=== PATIENT | male | born 1930 | race Caucasian/White ===

== ENCOUNTER 2016-08-22 06:42 | Inpatient (IN) | payer MEDICARE, OTHER ==
[~2016-08-22] VITALS: Ht 172.7 cm; Wt 101.8 kg
[~2016-08-22 06:42] MED LIST: ASA CHILDREN'S81 MG PO; B-12500 MCG PO; CALCIUM CARBON650 MG PO; CORDARONE DPS200 MG PO; COUMADIN2.5 MG PO; COUMADIN5 MG PO; FLOMAX DPS0.4 MG PO; FOLVITE-DPS1 MG PO; GARLIC OIL3 MG PO; LIPITOR DPS10 MG PO; LIPITOR20 MG PO; MAALOX DPS30 ML PO; MELATONIN3 MG PO; NASAREL NASAL S25 ML NS; NITROSTAT0.4 MG SL; NORVASC2.5 MG PO; OMEGA-3 DPS1000 MG PO; PEPCID DPS20 MG PO; PROAIR RESPICL90 MCG IH; SENOKOT S1 TAB PO; SURFAK DPS240 MG PO; TOTALDAY MULTI1 EACH PO; TRIXAICIN60 GM TP; TYLENOL DPS325 MG PO; VITAMIN B-12500 MCG PO; VITAMIN D-32000 UNI1 PO; ZOFRAN4 MG PO; ZYLOPRIM-DPS300 MG PO
--- NOTE | 2016-08-22 12:40 | ER ---
ADMIT: 08/22/2016 RM/LOC: ER [facility] MR#: [id number] [address] [facility] [address] [place], [place] [address] CARLOS SEGURA [address] [place] [address] Emergency Room Report SEX: M AGE: 86 : 1930 DATE: 08/22/2016 ADDENDUM: This is an 86-year-old white male coming in with acute onset of headache through the night that woke him up. He finally could not take it anymore, came in. This gentleman also has had a history of a subdural in 2016 from a fall. He has atrial fibrillation. He is also at this time on Eliquis I am thinking for atrial fibrillation. At this time, he is alert, he is oriented. He has no deficits at this time, just this headache. Dr. Rubio had saw him initially. PT/INR is negative. Chemistry is essentially negative. Borderline creatinine is 1.8. His CBC is otherwise negative. EKG appears to have a right bundle branch block. He has a history of atrial fibrillation, but I do not think that he has been in AFib recently. I spoke with Dr. Ayala after we did a CT with and without. He is going to admit him as an observation since we cannot tap him. Gave him a little Dilaudid for pain which has helped. CONDITION ON DISCHARGE: Fair. Benjamín Apple MD/ cyndy JOB #: [id number] CC: Kedar Rubio MD, Attending Physician Ricardo Gomes MD, Family Physician
--- NOTE | 2016-08-22 16:23 | HP ---
ADMIT: 08/22/2016 RM/LOC: 402 [facility] MR#: [id number] [address] [address] COLTON CARLOS Nacho [address] [place], [place] [address] History and Physical SEX: M AGE: 86 : 1930 DATE OF SERVICE: CHIEF COMPLAINT: Sudden onset intractable headache and intractable nausea and vomiting. HISTORY OF PRESENT ILLNESS: This is obtained from the medical record as the patient is a bit delirious secondary to antiemetic and pain medications. This is an 86-year-old male, who see my partner, Dr. Ricardo Gomes. He is evaluated in the ER by Dr. Benjamín Apple secondary to a sudden onset of intractable headache. He did undergo an evaluation with Dr. Apple in the ER, he was unable to find an acute etiology of his symptoms, he would like to do a lumbar puncture on him; however, he is unable to do so secondary to him being on anticoagulants for paroxysmal atrial fibrillation. At that time, without an etiology of his headache and nausea, he did request admission to observation. The patient did have acute control of his symptoms upon initial admission. However, on arrival to the floor, the patient was complaining of severe headache and an intractable nausea. We gave some IV steroids to help with his nausea which did not improve, but ultimately responded very nicely to IV Phenergan. Upon my arrival to the bedside, the patient is actually delirious. He awakes to verbal stimuli. He tells me what his name is, shakes my hand. However, he is unable to give me any in-depth details. He has no pain currently. He has no pain in his neck, and he states his headache is actually better. He does not have any photophobia, and he moves all his extremities. However, he is quite delirious. PAST MEDICAL HISTORY: 1. Osteoarthritis. 2. Hyperlipidemia. 3. Coronary artery disease. 4. Paroxysmal atrial fibrillation. 5. History of subdural hematoma with paulina hole. 6. Hypertension. 7. Obstructive sleep apnea, on CPAP. 8. Chronic anticoagulation for atrial fibrillation. 9. Carotid stenosis, status post right carotid endarterectomy. 10.Prior CVA. 11.Lumbar stenosis. 12.BPH. 13.Environmental allergies. 14.Tobacco abuse. ALLERGIES: HE IS ALLERGIC TO ZOCOR. MEDICATIONS: 1. Allopurinol. 2. Atorvastatin. 3. Apixaban. 4. Calcium carbonate. ADMIT: 08/22/2016 RM/LOC: 402 [facility] MR#: [id number] [address] [address] CARLOS STARKEY [address] [place] [address] History and Physical SEX: M AGE: 86 : 1930 5. Cyanocobalamin. 6. Vitamin D. 7. Docusate. 8. Fish oil. 9. Folic acid. 10.Melatonin. 11.Multivitamins. 12.Polyethylene glycol. 13.Ranitidine. 14.Tamsulosin. 15.Amiodarone. 16.Cod liver oil. 17.Garlic oil. FAMILY HISTORY: Dementia in sisters. Brother with diabetes. Heart disease in mother and father. SOCIAL HISTORY: He is . He does not drink. He is retired. He used to smoke. Lives at home with his . REVIEW OF SYSTEMS: Not completely obtainable. However, he denies any headache right now. No neck pain. No shortness of breath. No chest pain. PHYSICAL EXAMINATION: VITAL SIGNS: Blood pressure is 153/73, pulse is 80, respiratory rate is 16, temperature is 96.5 degrees, he is 96% on O2. GENERAL: He is sedated from the medications, however, he does awake to verbal and tactile stimulus. He is able to tell me who he is, however, he does talk very quietly. HEENT: Normocephalic, atraumatic. Extraocular muscles are intact. Pupils are equally round and responsive to light. He has no photophobia. No nasal discharge. I felt around on his head, he has no trauma. No crepitus. No masses or swellings. I felt his neck as well, no symptoms there. He put his chin on his chest. He has no nuchal rigidity right now. HEART: Regular. LUNGS: Clear to auscultation with a little bit of distance. He does cough when you wake him up and does have a history of sleep apnea. ABDOMEN: Soft, nontender, and nondistended. EXTREMITIES: No clubbing, cyanosis, or edema. NEURO: He moves all of his extremities. He does follow some complex commands. His cranial nerves are grossly intact. PSYCHIATRIC: He is very delirious from medications to control his symptoms. LABORATORY AND X-RAY DATA: CT of head without contrast, no acute findings. CTA of his head with the fluid collection and the previous paulina hole, otherwise nothing acute. White blood cells are 6.2, hemoglobin is 12.5, platelets are 144. Sodium is 142, potassium is 4.3, chloride is 110, bicarb is 25, BUN is 33, creatinine is 1.8, blood glucose is 92, calcium is 8.2, total bilirubin is 0.5, total protein 7.3, albumin is 3, alkaline phosphatase is 86, ADMIT: 08/22/2016 RM/LOC: 402 [facility] MR#: [id number] [address] [place] [id number] CARLOS STARKEY [facility] [place] [address] History and Physical SEX: M AGE: 86 : 1930 AST is 14, ALT is 18. Magnesium is 2.3. INR is less than 1. CTA of his head as stated above. Sedimentation rate is 53. Procalcitonin and CRP are pending. EKG, no acute ST segments. ASSESSMENT AND PLAN: 1. Intractable headache, worse headache of his life. 2. Intractable nausea. 3. Delirium. 4. Paroxysmal atrial fibrillation. 5. Chronic kidney disease. 6. Prior subdural hematoma. 7. Benign prostatic hypertrophy. 8. Hyperlipidemia. 9. Hypertension. Mr. Starkey is an 86-year-old man with the above medical history. He had a rather sudden onset of the worst headache of his life on last night that woke him from his sleep. He did undergo an extensive evaluation in the ER with extensive imaging, unable to determine any etiology. He has no nuchal rigidity. He has no photophobia. He has no localizing symptoms. No focal neurological deficits right now. He is delirious from the medications. The patient did have this rather sudden onset. He is not currently febrile, however, the patient does not have a clear etiology of his intractable nausea and his headache. What I will do is I am going to go ahead and start him on some empiric DINING ROOM TABLES SET UP ATTENDANT coverage with ampicillin, ceftriaxone, and vancomycin. I am going to hold non-essential medications at this time. I will maintain him on the Dilaudid and Phenergan as needed for his headache and nausea and vomiting. I am also going to obtain some cardiac enzymes and trend his cardiac enzymes. I am going to hold his anticoagulation and request Interventional Radiology to evaluate the patient for a lumbar puncture with opening pressure as well as I am going to ask Neurosurgery to evaluate this patient with his previous brain surgery and noted fluid collection in his brain from his previous subdural and noted to have paulina hole. Ask their opinion on if they think this is secondary to pressure finding or if they have any further recommendations on further evaluation. I feel that the LP would tell us a lot of information, however, we will see if we can safely complete this with our Interventional Radiology folks, otherwise. We are going to cover him empirically for a DINING ROOM TABLES SET UP ATTENDANT infection, focus on symptom control, trend his enzymes, and I will adjust the plan based on his clinical progress. Benjamín Ayala MD/ cyndy JOB #: [id number] CC: Benjamín Ayala MD, Attending Physician ADMIT: 08/22/2016 RM/LOC: 402 [facility] MR#: [id number] [address] [address] CARLOS STARKEY [address] [place] [address] History and Physical SEX: M AGE: 86 : 1930 Benjamín Ayala MD, Family Physician
--- NOTE | 2016-08-23 11:48 | CO ---
ADMIT: 08/22/2016 RM/LOC: 402 [facility] MR#: [id number] [address] [address] CARLOS SEGURA [address] [place], [place] [address] Consultation SEX: M AGE: 86 : 1930 DATE OF CONSULTATION: 08/22/2016 ATTENDING PHYSICIAN: Benjamín Ayala MD CONSULTING PHYSICIAN: Rachele Workman MD HISTORY OF PRESENT ILLNESS: This 86-year-old man in the hospital today was admitted with primary complaint of headache that is generalized, however, according to the history given by his , he got up this morning to go to the bathroom and asked for help because he was feeling quite dizzy. Dizziness was accompanied by nausea and vomiting and as a consequence of that, he was brought to the emergency room still complaining of headaches. He does not usually have headaches. On asking the , she indicated he did not have any headaches yesterday and did not have any headaches that she can remember in the immediate past. Portion of his past medical history is that he had a left frontal paulina hole evacuation of a subdural hematoma, about slightly more than a year ago and has been doing quite well since then. Post op, he had CT scan done, it was last year and the CT scan did show the presence of bilateral subdural effusions, more on the left than on the right without any definite mass effect. In addition does have generalized evidence of atrophy including the cerebellar hemispheres. He denied any weakness in his upper and lower extremities. Denies any numbness. He did not complain of any tinnitus. Investigations carried out when he was here included a CT scan of the brain. CT scan of the brain showed bilateral subdural effusions, which are much more on the left compared to the right, however, the size effusion are the same as they were last year. He also had a CT angiogram, which was negative for any aneurysm. PAST MEDICAL HISTORY: He has had coronary artery bypass surgery, he has a history of chronic atrial fibrillation, he is on anticoagulant. He is hypertensive. He has sleep apnea, GERD, benign prostatic hypertrophy, he has carotid occlusive disease, he has history of CA of the bladder. As noted above, he has had subdural hematoma. He has a history of spinal stenosis. He also had had coronary stents x5. Bilateral triple knee arthroplasties. Had cholecystectomy and appendectomy, right carotid endarterectomy, ureteral stent and bladder surgery. SOCIAL HISTORY: He used to smoke, but stopped smoking few years ago. He also drinks alcohol occasionally. Lives with his at home. FAMILY HISTORY: Noncontributory. REVIEW OF SYSTEMS: Could not be accurately done because he was sleepy from the medications he just received, primarily the Phenergan that he just received most likely. PHYSICAL EXAMINATION: GENERAL: This is an 86-year-old man. He was sleepy, but I could easily arouse him and get him to follow some commands. VITAL SIGNS: Blood pressure 158/79, pulse was 67 and it was regular, ADMIT: 08/22/2016 RM/LOC: 402 [facility] MR#: [id number] [address] [address] CARLOS SEGURA [address] [place] [address] Consultation SEX: M AGE: 86 : 1930 respirations 16, and temperature 96.5. HEENT: Pupils were equal. He was normocephalic, however, one could see the paulina hole site in the left frontal region. CHEST: Clear. HEART: Rate was regular. ABDOMEN: Soft. He did complain of tenderness in the epigastrium. NEUROLOGICAL EXAMINATION: Cranial Nerve Examination: Normal. Motor Examination: Normal. Sensory Examination: Normal. There was no sensory inattention. Reflexes are normal in the upper extremities. In the lower extremities, I could not get the knee jerks and the ankle jerks were diminished. The toes were upgoing bilaterally. DIAGNOSTIC DATA: I did review the films. IMPRESSION: Bilateral subdural effusion, but I do not think this is the etiology of his dizziness and I do not think this has anything to do with the headache primarily because if one compares what we see now on the scan with what was done previously a number of months ago when he was not having any headaches, the subdural effusions were the same probably. Therefore, I do not think that this is the etiology of his present headache. RECOMMENDATION: At this time is just to treat him symptomatically and just watch and see how things progress. Rachele Workman MD/ cyndy JOB #: [id number] CC: Benjamín Ayala MD, Attending Physician Benjamín Ayala MD, Family Physician
[2016-08-27] MEDS ORDERED: ELIQUIS2.5 MG PO (06:10)
[2016-08-27] MEDS ORDERED: MELATONIN3 MG PO (06:14)
[2016-08-27] MEDS ORDERED: MIRALAX PACKET17 GM PO (06:15)
[2016-08-27] MEDS ORDERED: ZANTAC DPS150 MG PO (06:16)
[2016-08-27] MEDS ORDERED: CORDARONE DPS200 MG PO (06:16)
[2016-08-27] MEDS ORDERED: MECLIZINE HCL12.5 MG PO (06:18)
[2016-08-27] MEDS ORDERED: SURFAK DPS240 MG PO (06:19)
--- NOTE | 2016-08-29 09:12 | DS ---
ADMIT: 08/22/2016 RM/LOC: 402 [facility] MR#: [id number] [address] [address] CARLOS SEGURA [address] [place], [place] [address] Discharge Summary SEX: M AGE: 86 : 1930 ADMISSION DATE: 08/22/2016 DISCHARGE DATE: 08/26/2016 DISCHARGE DIAGNOSES: 1. Headache resolved. 2. Benign paroxysmal positional vertigo resolved. 3. History of subdural hematoma. 4. History of CVA (cerebrovascular accident). 5. Atrial fibrillation status post pacemaker. 6. Hypertension. 7. BPH (benign prostatic hypertrophy). 8. Known carcinoma of the bladder. 9. 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 CONSULTATIONS: Neurosurgery. REASON FOR ADMISSION: A very pleasant, 86-year-old gentleman, who presented to [facility] emergency room on the day of admission with complaints of the worst headache of his life. He underwent imaging of the head and was admitted for further evaluation and treatment. For complete details, please see H and P dictated on the day of admission. HOSPITAL COURSE: At the time of admission, the patient was placed in the ICU. He had undergone a CT scan of his head that did show his old subdurals and old strokes. No new changes were noted. He was seen by Neurosurgery who did not see any changes in his subdurals, but there was also question about subarachnoid hemorrhage. He had no obvious subarachnoid blood noted on his CT, but he also underwent a CTA looking for any aneurysmal changes, which was negative. His headaches pretty much resolved all but from a mild frontal headache he did have some complaints of with some mild vertigo. He was found not to be orthostatic. He was given low-dose IV fluids, but with this headache and some questionable neck stiffness and him feeling fevers, he was empirically covered with antibiotics and then underwent a lumbar puncture. The lumbar puncture came back with no xanthochromia and no significant white cells or red cells. Cytology was also negative for any malignant cells. His antibiotics were stopped. He did have a mild bump in creatinine during the hospitalization. He looked to be intrinsic renal with an elevated FENa, but he had 15% urine eosinophils. This was thought to be secondary to interstitial nephritis. His creatinine stabilized, and once again, this was likely thought to be secondary to antibiotics, and those were stopped. He ambulated and ate. We did discuss an MRI for further evaluation especially ADMIT: 08/22/2016 RM/LOC: 402 [facility] MR#: [id number] [address] [address] [facility] [address] [place] [address] Discharge Summary SEX: M AGE: 86 : 1930 given his history of bladder cancer. However, that could not be undertaken due to his implantable pacemaker. At the time of discharge, his headache was maybe 1 or 2 out of 10, very mild, and was not limiting him at all. His creatinine was stable. Once again he ate and drank and was thought to be ready for discharge on 08/26. His discharge diet is cardiac as tolerated. His discharge activity is as tolerated. Discharge medications are found on his discharge medication list. We will have plans to follow him up as an outpatient and recheck his creatinine with plans to move forward with his upcoming surgery for his bladder cancer if he is doing well. As mentioned, we will have followup with him in the next 7-10 days. Ricardo Gomes MD/ cesar JOB #: [id number] CC: Benjamín Ayala MD, Attending Physician Benjamín Ayala MD, Family Physician
--- NOTE | 2016-09-08 11:38 | CO ---
ADMIT: 08/22/2016 RM/LOC: 402 [facility] MR#: [id number] [address] [address] CARLOS SEGURA [address] [place], [place] [address] Consultation SEX: M AGE: 86 : 1930 ATTENDING PHYSICIAN: Benjamín Ayala MD CONSULTING PHYSICIAN: Lang Morgan MD CHIEF COMPLAINT: Recurrent bladder tumor. 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 He did undergo a recent cystoscopy, which demonstrated what appears to be recurrent bladder tumor along the left lateral aspect of the bladder neck. The patient's left ureteral orifice is not well identified. I had initially recommended resection of this bladder tumor/prostate tissue. We have discussed cystoscopy , transurethral resection of bladder tumor, and transurethral resection of prostate gland as indicated. Patient wanted a second opinion and has since been to see Dr. Elias down an [facility] who made a similar recommendation. The patient has chosen to proceed with surgery here. Risks and benefits have been discussed with patient. Complications of anesthesia, bleeding, infection, injury to the distal ureter, potentially leave percutaneous nephrostomy tube, need for Langford catheter management with continuous bladder irrigation postoperatively. The patient voices understanding and wished to proceed at this time. We will have Dr. Gomes follow the patient along postoperatively as well. He is on Eliquis at the present time. We will have the patient hold that for at least 5 days prior to procedure. PAST MEDICAL HISTORY: Significant for: 1. History of transitional cell carcinoma of bladder. 2. History of acute renal failure. 3. History of left hydronephrosis. 4. Coronary artery disease. 5. Carotid stenosis. 6. History of strokes. 7. Gout. 8. Hyperlipidemia. 9. Hypertension. 10.Lumbar stenosis. 11.Osteoarthritis. MEDICATIONS: At the present time are numerous and include: 1. Tylenol. 2. Albuterol. 3. Allopurinol. 4. Amiodarone. 5. Eliquis, which has been on hold. 6. Aspirin, which has been on hold. 7. Atorvastatin. 8. Calcium. 9. Pepcid. 10.Metoprolol. ADMIT: 08/22/2016 RM/LOC: 402 [facility] MR#: [id number] [address] [address] CARLOS SEGURA [address] [place] [address] Consultation SEX: M AGE: 86 : 1930 11.Zofran as needed. 12.Flomax. 13.Coumadin has been on hold. ALLERGIES: HALDOL, MORPHINE, PRAVASTATIN, AND SIMVASTATIN. PAST SURGICAL HISTORY: 1. Previous transurethral resection of bladder tumor. 2. Angioplasty. 3. Coronary artery bypass grafting. 4. Appendectomy. 5. Tonsillectomy. 6. Cholecystectomy. 7. Transurethral resection of prostate gland x2. 8. Right total hip arthroplasty. 9. Right carotid endarterectomy. FAMILY HISTORY: Noncontributory. SOCIAL HISTORY: The patient does not smoke. Has a very involved . REVIEW OF SYSTEMS: No active cardiac or pulmonary complaints. PHYSICAL EXAMINATION: GENERAL: The patient is in no apparent distress. HEART: Regular. CHEST: Clear. ABDOMEN: Soft. EXTREMITIES: No cyanosis, clubbing, or edema. ASSESSMENT: History of transitional cell carcinoma of the bladder with recurrence at the bladder neck and intermittent gross hematuria. PLAN: Proceed with cystoscopy, transurethral resection of bladder tumor/prostate. Risks and benefits as outlined above. Preoperative antibiotics will be administered on the day of procedure. Lang Morgan MD/ cyndy JOB #: [id number] CC: Benjamín Ayala MD, Attending Physician Benjamín Ayala MD, Family Physician
[2016-09-26] MEDS ORDERED: CIPRO DPS500 MG PO (19:01)
[2016-09-26] MEDS ORDERED: DUONEB DPS3 ML IH (19:01)
[2016-10-19] MEDS ORDERED: TYLENOL DPS325 MG PO (10:58)
[2016-10-19] MEDS ORDERED: LIPITOR DPS10 MG PO (10:59)
[2016-10-19] MEDS ORDERED: CALTRATE-600 D600 MG PO (10:59)
[2016-10-19] MEDS ORDERED: ZYLOPRIM-DPS300 MG PO (10:59)
[2016-10-19] MEDS ORDERED: VITAMIN D-32000 UNI1 PO (11:00)
[2016-10-19] MEDS ORDERED: B-12 DOTS500 MCG PO (11:00)
[2016-10-19] MEDS ORDERED: SENOKOT S1 TAB PO (11:01)
[2016-10-19] MEDS ORDERED: FOLVITE-DPS1 MG PO (11:01)
[2016-10-19] MEDS ORDERED: MELATIN3 MG PO (11:01)
[2016-10-19] MEDS ORDERED: MIRALAX PACKET17 GM PO (11:02)
[2016-10-19] MEDS ORDERED: THERA1 EACH PO (11:02)
[2016-10-19] MEDS ORDERED: ZOFRAN8 MG PO (11:02)
[2016-10-19] MEDS ORDERED: ZANTAC DPS150 MG PO (11:03)
[2016-10-19] MEDS ORDERED: NORCO 5-325 TA1 EACH PO (11:03)
[2016-10-19] MEDS ORDERED: CORDARONE DPS200 MG PO (11:03)
[2016-10-19] MEDS ORDERED: ANTIVERT-DPS25 MG PO (11:03)
[2016-10-19] MEDS ORDERED: METAMUCIL POWD822 GM PO (11:05)
[2017-01-17] MEDS ORDERED: ULTRAM DPS50 MG PO (09:05)
[2017-01-17] MEDS ORDERED: METOPROLOL TART25 MG PO (09:05)
[2017-01-17] MEDS ORDERED: FLOMAX DPS0.4 MG PO (09:05)
[2017-01-17] MEDS ORDERED: ASA325 MG PO (09:06)
[2017-01-17] MEDS ORDERED: LASIX20 MG PO (09:06)
== END 2016-08-26 10:47 | disposition home or self-care (01) | DRG 103 ==
LOC: ER 06:42 → 4PCU 09:50
PROVIDERS: ADMIT Internal Medicine
PROC: 009U3ZX Drainage of Spinal Canal, Percutaneous Approach, Diagnostic (ICD-10-PCS; principal; 2016-08-25)
PROC: B01BZZZ Fluoroscopy of Spinal Cord (ICD-10-PCS; principal; 2016-08-25)
DX: R51 Headache (principal); N17.9 Acute kidney failure, unspecified; F05 Delirium due to known physiological condition; N12 Tubulo-interstitial nephritis, not specified as acute or chronic; C67.5 Malignant neoplasm of bladder neck; I48.0 Paroxysmal atrial fibrillation; I45.10 Unspecified right bundle-branch block; M19.90 Unspecified osteoarthritis, unspecified site; E78.5 Hyperlipidemia, unspecified; I25.10 Atherosclerotic heart disease of native coronary artery without angina pectoris; I12.9 Hypertensive chronic kidney disease with stage 1 through stage 4 chronic kidney disease, or unspecified chronic kidney disease; M10.9 Gout, unspecified; K59.00 Constipation, unspecified; R09.02 Hypoxemia; N18.9 Chronic kidney disease, unspecified; G47.33 Obstructive sleep apnea (adult) (pediatric); M48.06 Spinal stenosis, lumbar region; N40.0 Benign prostatic hyperplasia without lower urinary tract symptoms; Z87.891 Personal history of nicotine dependence; Z79.01 Long term (current) use of anticoagulants; Z95.1 Presence of aortocoronary bypass graft; Z95.5 Presence of coronary angioplasty implant and graft; Z96.653 Presence of artificial knee joint, bilateral; Z86.79 Personal history of other diseases of the circulatory system; Z96.641 Presence of right artificial hip joint; Z95.0 Presence of cardiac pacemaker

== ENCOUNTER 2016-08-28 11:17 | Observation (INO) | payer MEDICARE, OTHER ==
[~2016-08-28] VITALS: Ht 172.7 cm; Wt 96.4 kg
[~2016-08-28 11:17] MED LIST changes: +ELIQUIS2.5 MG PO; +MECLIZINE HCL12.5 MG PO; +MIRALAX PACKET17 GM PO; +ZANTAC DPS150 MG PO
--- NOTE | 2016-09-26 16:22 | CO ---
ADMIT: 09/23/2016 RM/LOC: 404 [facility] MR#: [id number] [address] [address] ELVACARLOS MURPHY [address] [place], [place] [address] Consultation SEX: M AGE: 86 : 1930 DATE OF CONSULTATION: 09/23/2016 ATTENDING PHYSICIAN: Lang Morgan MD CONSULTING PHYSICIAN: Ricardo Gomes MD REASON FOR CONSULT: Assistance with medical management. HISTORY OF PRESENT ILLNESS: The patient is a very pleasant 86-year-old gentleman. 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 The patient had been having difficulty with this recently and we had actually put off some surgery due to his worsening renal function, but even in light of that needed to get him in to the operating room today and I am asked to see him postoperatively for assistance with medical management. Patient did well intraoperatively. Dr. Morgan noted the tumor along the left lateral wall but also noted urethral prostate with some polypoid changes. He was not able to visualize the left ureteral orifice. So we did have a TURBT as well as transurethral resection of the polypoid tissue of the prostate. Postoperatively, the patient had a little bit of nausea but he is drowsy, but wakes up to me. Denies chest pain or shortness of breath. Does have some penile discomfort with the catheter, otherwise no abdominal discomfort is noted. PAST MEDICAL HISTORY: 1. Transitional cell carcinoma of the bladder with history of some left hydronephrosis. 2. He prior had ureteral stenting which he did not tolerate the best. 3. Osteoarthritis. 4. Hyperlipidemia. 5. History of coronary artery disease status post coronary artery bypass grafting and PCI. 6. Paroxysmal atrial fibrillation, on anticoagulation until recently with Eliquis. 7. History of subdural hematoma with bur hole. 8. History of chronic diastolic heart failure. 9. Hypertension. 10.Obstructive sleep apnea on CPAP. 11.History of carotid stenosis status post prior right-sided carotid endarterectomy. 12.History of stroke. 13.History of lumbar spinal stenosis. 14.History of seasonal allergic rhinitis. 15.History of BPH. 16.History of prior tobacco abuse. ALLERGIES: HE HAD SOME MYALGIAS WITH ZOCOR. HE GETS SOME DELIRIUM WITH ADMIT: 09/23/2016 RM/LOC: 404 [facility] MR#: [id number] [address] [address] CARLOS SEGURA [address] [place] [address] Consultation SEX: M AGE: 86 : 1930 MORPHINE, ALSO HAD SOME MYALGIAS WITH PRAVACHOL. PAST SURGICAL HISTORY: He is status post appendectomy, status post tonsillectomy, status post cholecystectomy, status post right total hip arthroplasty, status post right rotator cuff repair, status post atrial fibrillation ablation and pacemaker in March of 2016. CURRENT HOME MEDICATIONS: Include: 1. Allopurinol. 2. He is currently off Eliquis. 3. Atorvastatin. 4. Calcium. 5. B12. 6. Vitamin D. 7. Fish oil. 8. Folic acid. 9. Melatonin. 10.Multivitamin. 11.MiraLax. 12.Zantac. 13.Flomax. 14.Amiodarone. 15.Garlic and cod liver oil. FAMILY HISTORY: Noncontributory. SOCIAL HISTORY: He is a prior smoker, quit in 1990 after 35 pack years. He is an occasional drinker. No IV or illicit drug use. He is with children, retired, lives here in town. REVIEW OF SYSTEMS: As noted above. All systems reviewed and negative. PHYSICAL EXAMINATION: VITAL SIGNS: 97.3, 85, 18, 153/90, and 96% on couple liters per nasal cannula. GENERAL: This is an elderly gentleman in no apparent distress. He is a little drowsy but wakes up very easily and answers questions. HEENT: Normocephalic and atraumatic. Mucous membranes are moist. NECK: Supple. LUNGS: Clear. CHEST: Noted left-sided pacemaker in place. ABDOMEN: Soft, nontender, nondistended. Positive bowel sounds. EXTREMITIES: He has a Langford catheter in place and a CBI is hooked up to that draining yellow-clear yellowish urine. No blood or clots are noted. EXTREMITIES: Some trace to 1+ ankle edema. LABORATORY DATA: Lab work is reviewed from September 15 showed a hemoglobin of 13.1, white count 6.4, and 219,000 platelets. Sodium 139, potassium 4.4, BUN is 20, creatinine 2.2, his bicarb was 29, and calcium is 8.7. ADMIT: 09/23/2016 RM/LOC: 404 [facility] MR#: [id number] [address] [place] [id number] CARLOS SEGURA [address] [place] [address] Consultation SEX: M AGE: 86 : 1930 ASSESSMENT: 1. Transitional cell carcinoma of the bladder status post transurethral resection of bladder tumor as well as benign prostatic hypertrophy with transurethral resection of prostatic tissue. 2. Chronic kidney disease with recent worsening of renal function. Overall, patient did really well postoperatively. 3. Chronic kidney disease with slight worsening of creatinine. 4. Atrial fibrillation, currently on no anticoagulation. 5. Status post ablation with pacemaker in place. 6. Chronic diastolic congestive heart failure. 7. Coronary artery disease, status post PCI. 8. Obstructive sleep apnea on CPAP. 9. Hypertension. At this time, patient did real well during surgery, is little nauseated. We will make sure he has antiemetics and start him on clears. We are going to hold off on any anticoagulation right now. We will continue with his amiodarone, but right now, we will watch him on telemetry. He does have history of some mild diastolic heart failure. We will watch his I's and O's and his daily weights. Continue with his home CPAP, watch his blood pressures as well. The big question will be if his kidney function stabilizes or if we will have to make other thoughts about a percutaneous drainage as he just did not tolerate stenting in the face of that hydronephrosis in the past. I need to involve Nephrology, but we will follow things closely. Thank you very much for the consultation. Ricardo Gomes MD/ cyndy JOB #: [id number] CC: Lang Morgan MD, Attending Physician Ricardo Gomes MD, Family Physician
[2016-09-26] MEDS ORDERED: CIPRO DPS500 MG PO (19:01)
[2016-09-26] MEDS ORDERED: DUONEB DPS3 ML IH (19:01)
--- NOTE | 2016-10-14 10:12 | OR ---
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 PROCEDURE: Cystoscopy with transurethral resection of muscle invasive transitional cell carcinoma of bladder and transurethral resection of prostate. ANESTHESIA: General. 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 He has developed left hydronephrosis. He does have local progression of disease involving the left lateral bladder wall, floor of the bladder, as well as extending into the prostatic urethra. The patient has been having intermittent gross hematuria. The patient has been off his Eliquis. He presents today for resection. The risks and benefits have been discussed. Preoperative antibiotics given. DESCRIPTION OF PROCEDURE: The patient was taken was taken to OR #5, placed on the table in supine position. After adequate anesthesia, transferred to dorsal lithotomy position, prepped and draped in the usual fashion. A time- out was taken for patient's name, date of , planned procedure, preoperative antibiotics and allergies. A 26-Bulgarian resectoscope sheath with visual obturator and 12-degree lens was advanced to the level of bladder. The urethra was unremarkable. Prostate has been resected previously. There was a mucosal tumor noted throughout the prostatic urethra. Upon entering the bladder, tumor and bolus edema of the mucosa along the left lateral wall is identified. The right ureteral orifice is just slightly lateral to this mucosal change. The left ureteral orifice was not visualized. Beginning at the superior extent of the tumor on the left lateral wall, we did begin our resection using the Olympus bipolar resecting loop. This went very nicely. The tumor base was somewhat woody as would be expected. We did carry this down to a point just medial to the right ureteral orifice. I did try to identify the left ureteral orifice or any indication there and I was unable to do so. We did go ahead and follow resection to the bladder neck where there was a lot of bolus and papillary tissue, this was resected. I then had to extend my resection along the left lateral aspect of the prostatic urethra as there was some papillary tumor here as well. At this point, we had all visible tumor resected. Tumor was evacuated from the bladder. We then inspected the resection area very closely. Again, the position of the right ureteral orifice was noted. The left ureteral orifice was not visualized. We did try to avoid any coagulating current in the ADMIT: 09/23/2016 RM/LOC: 404 [facility] MR#: [id number] [address] [place] [id number] CARLOS SEGURA [address] [place] [address] Operative/Delivery Room Report SEX: M AGE: 86 : 1930 expected area of the left ureteral orifice. We did obtain meticulous hemostasis. At this point, the bladder was reinspected. No additional prostate or bladder tumor tissue was noted within the bladder lumen. With outflow, and decompression of bladder, there was no evidence of significant bleeding. The bladder was left open to pass through the scope was withdrawn. A 22-Bulgarian 3-way Langford catheter was passed. I did instill approximately 20 mL in the Langford balloon. This seats nicely at the bladder neck. The catheter irrigates nicely and urinary effluent was clear. The catheter was left to gravity drainage secured to the patient's anterior thigh. He was taken out of dorsal lithotomy position. Normal saline CBI was then initiated with clear urine effluent. Tissue was collected and sent for pathological analysis. Estimated blood loss was 50 mL. No apparent complications. All equipments were accounted before the termination of our case. DISPOSITION: The patient will be admitted for continuous bladder irrigation. We will have Dr. Gomes see the patient for assistance with management of his medical issues. In terms of his renal insufficiency, we will make sure that this remains stable. If this becomes a progressive problem and patient elects too, we may have to consider percutaneous nephrostomy tube with attempted antegrade stent placement. We will see how his renal function does. Before we do this, the patient is absolutely miserable to stand through. Lang Morgan MD/ cyndy JOB #: [id number] CC: Lang Morgan MD, Attending Physician Ricardo Gomes MD, Family Physician
[2016-10-19] MEDS ORDERED: TYLENOL DPS325 MG PO (10:58)
[2016-10-19] MEDS ORDERED: CALTRATE-600 D600 MG PO (10:59)
[2016-10-19] MEDS ORDERED: ZYLOPRIM-DPS300 MG PO (10:59)
[2016-10-19] MEDS ORDERED: LIPITOR DPS10 MG PO (10:59)
[2016-10-19] MEDS ORDERED: VITAMIN D-32000 UNI1 PO (11:00)
[2016-10-19] MEDS ORDERED: B-12 DOTS500 MCG PO (11:00)
[2016-10-19] MEDS ORDERED: MELATIN3 MG PO (11:01)
[2016-10-19] MEDS ORDERED: SENOKOT S1 TAB PO (11:01)
[2016-10-19] MEDS ORDERED: FOLVITE-DPS1 MG PO (11:01)
[2016-10-19] MEDS ORDERED: ZOFRAN8 MG PO (11:02)
[2016-10-19] MEDS ORDERED: MIRALAX PACKET17 GM PO (11:02)
[2016-10-19] MEDS ORDERED: THERA1 EACH PO (11:02)
[2016-10-19] MEDS ORDERED: ANTIVERT-DPS25 MG PO (11:03)
[2016-10-19] MEDS ORDERED: ZANTAC DPS150 MG PO (11:03)
[2016-10-19] MEDS ORDERED: CORDARONE DPS200 MG PO (11:03)
[2016-10-19] MEDS ORDERED: NORCO 5-325 TA1 EACH PO (11:03)
[2016-10-19] MEDS ORDERED: METAMUCIL POWD822 GM PO (11:05)
--- NOTE | 2016-11-03 11:40 | DS ---
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 PRINCIPAL PROCEDURE: Transurethral resection of bladder tumor and prostate. SECONDARY DIAGNOSES: 1. Left hydronephrosis with associated renal insufficiency. 2. Long-term anticoagulant therapy. 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 He has been having intermittent bleeding, difficulty voiding. He presented for transurethral resection of bladder tumor as well as transurethral resection of prostate to address bladder tumor recurrence within the prostatic fossa. The patient does follow up with Dr. Gomes, has known renal insufficiency and left hydronephrosis secondary to tumor obstruction, which we have decided to follow conservatively. HOSPITAL COURSE: The patient was seen and admitted on 09/23/2016. He underwent the above-mentioned procedure without apparent complication. Postoperatively, he was managed with indwelling Langford catheter. We did use continuous bladder irrigation. On postop day #1, the patient was doing quite well. His CBI was discontinued. His Langford catheter was removed. He was otherwise feeling well. On that day, his serum creatinine was 1.6, and it improved slightly. His hemoglobin was stable at 12.6. Dr. Gomes did follow the patient along for management of his other medical issues. Later in the day, on postop day #1, the patient was doing well. He did have some urge- associated incontinence, which was not unexpected. Dr. Gomes did follow the patient along and he was cleared for discharge from urologic standpoint. We did have plans to treat him with Cipro twice a day for 5 days after resection. On postop day #2, the patient was doing well. Dr. Gomes did clear the patient for discharge. DISCHARGE CONDITION: Good. DISCHARGE ACTIVITY: Per discharge order sheet. DISCHARGE INSTRUCTIONS: Per discharge order sheet. ADMIT: 09/23/2016 RM/LOC: 404 [facility] MR#: [id number] [address] [address] [facility] [address] [place] [address] Discharge Summary SEX: M AGE: 86 : 1930 DISCHARGE MEDICATIONS: Include: 1. Cipro. 2. Cordarone. 3. Flomax. 4. Lipitor. 5. Zyloprim. 6. DuoNeb. The patient will continue to hold his Eliquis upon discharge. Other home medications will be re-initiated. FOLLOWUP: The patient will follow up with me in 1 week. Lang Morgan MD/ cyndy JOB #: [id number] CC: Lang Morgan MD, Attending Physician Ricardo Gomes MD, Family Physician
[2017-01-17] MEDS ORDERED: METOPROLOL TART25 MG PO (09:05)
[2017-01-17] MEDS ORDERED: FLOMAX DPS0.4 MG PO (09:05)
[2017-01-17] MEDS ORDERED: ULTRAM DPS50 MG PO (09:05)
[2017-01-17] MEDS ORDERED: LASIX20 MG PO (09:06)
[2017-01-17] MEDS ORDERED: ASA325 MG PO (09:06)
== END 2016-09-25 10:40 | disposition home or self-care (01) ==
LOC: WOR 09-23 05:39 → 6PED 09-23 08:33 → 4PCU 09-23 08:46
PROVIDERS: ADMIT Urology
PROC: 0VB08ZZ Excision of Prostate, Via Natural or Artificial Opening Endoscopic (ICD-10-PCS; principal; 2016-09-23)
PROC: 0TBB8ZX Excision of Bladder, Via Natural or Artificial Opening Endoscopic, Diagnostic (ICD-10-PCS; principal; 2016-09-23)
DX: C67.9 Malignant neoplasm of bladder, unspecified (principal); I48.0 Paroxysmal atrial fibrillation; M19.90 Unspecified osteoarthritis, unspecified site; I25.10 Atherosclerotic heart disease of native coronary artery without angina pectoris; E78.5 Hyperlipidemia, unspecified; G47.33 Obstructive sleep apnea (adult) (pediatric); I13.0 Hypertensive heart and chronic kidney disease with heart failure and stage 1 through stage 4 chronic kidney disease, or unspecified chronic kidney disease; I50.32 Chronic diastolic (congestive) heart failure; N18.9 Chronic kidney disease, unspecified; K21.9 Gastro-esophageal reflux disease without esophagitis; Z88.6 Allergy status to analgesic agent; Z95.0 Presence of cardiac pacemaker; Z79.899 Other long term (current) drug therapy; Z88.8 Allergy status to other drugs, medicaments and biological substances; Z98.890 Other specified postprocedural states

== ENCOUNTER → 2016-09-15 | Outpatient (CLI) | payer MEDICARE, OTHER ==
[~2016-09-15] MED LIST changes: +ANTIVERT-DPS25 MG PO; +ASA325 MG PO; +B-12 DOTS500 MCG PO; +CALTRATE-600 D600 MG PO; +CIPRO DPS500 MG PO; +DUONEB DPS3 ML IH; +LASIX20 MG PO; +MELATIN3 MG PO; +METAMUCIL POWD822 GM PO; +METOPROLOL TART25 MG PO; +NORCO 5-325 TA1 EACH PO; +THERA1 EACH PO; +ULTRAM DPS50 MG PO; +ZOFRAN8 MG PO
== END | disposition home or self-care (01) ==
LOC: PTH.S 07:58
DX: Z01.812 Encounter for preprocedural laboratory examination (principal)

== ENCOUNTER → 2016-10-09 | Outpatient (CLI) | payer MEDICARE, OTHER | END | disposition home or self-care (01) | LOC: PTH.S 10-08 09:12 → RAD.S 09:10 | DX: C67.2 Malignant neoplasm of lateral wall of bladder (principal); N28.9 Disorder of kidney and ureter, unspecified; N13.30 Unspecified hydronephrosis; N13.4 Hydroureter ==

== ENCOUNTER 2016-10-15 02:40 | Inpatient (IN) | payer MEDICARE, OTHER ==
[~2016-10-15] VITALS: Ht 172.7 cm; Wt 93.5 kg
--- NOTE | ~2016-10-15 | HP ---
ADMIT: 10/15/2016 RM/LOC: 429 [facility] MR#: [id number] [address] [address] CARLOS SEGURA [address] [place] [address] History and Physical SEX: M AGE: 86 : 1930 DATE OF SERVICE: CHIEF COMPLAINT: Nausea and severe headache. HISTORY OF PRESENT ILLNESS: The patient is a very pleasant 86-year-old gentleman, well known to me, with past medical history of bladder carcinoma, muscle invasive, status post recent TURBT and TURP as well, atrial fibrillation on chronic anticoagulation, history of subdurals, chronic kidney disease with chronic left-sided hydronephrosis, who presents to [facility] Emergency Room via private vehicle last night. He states he got up to go to the bathroom, was sitting on the edge of the bed when he had an acute onset of very severe headache, worst of his life, and just felt a little unsteady on his feet with associated nausea, but not any vomiting. He noted no real blurry vision or double vision. No localizable incoordination or limb weakness. With the severity of his headache, he was brought into the emergency room. He states that headache is much like he has had approximately 6 weeks ago when he was hospitalized for an extensive workup including multiple imaging procedures, Neurosurgery consultation, lumbar puncture. This morning in seeing the patient, he notes he is feeling a little bit better, rates his headache at about 3/10, still frontal in nature with no real radiation. Denies any neck pain or neck stiffness at this time. Denies any fevers or chills. Denies any chest pain, shortness of breath, or palpitations. No abdominal pain, bowel or bladder complaints are noted. He feels like he is emptying his bladder fine. Denies any hematuria or dysuria. PAST MEDICAL HISTORY: 1. Osteoarthritis, status post bilateral total knee arthroplasty. 2. Osteoarthritis of the hip, status post right total hip arthroplasty. 3. Hyperlipidemia. 4. Coronary artery disease, status post coronary bypass grafting and PCI. 5. Paroxysmal atrial fibrillation/flutter, status post ablation. He is status post permanent pacemaker placement. 6. History of subdural hematoma with paulina hole in 2016. 7. Hypertension. 8. Obstructive sleep apnea. 9. Chronic anticoagulation with Eliquis. 10.History of carotid stenosis, status post right carotid endarterectomy. 11.History of prior CVA. 12.History of lumbar spinal stenosis, status post epidural steroid injection. 13.Gout. 14.Status post cholecystectomy. 15.Status post appendectomy. 16.Status post prior PEG tube placement. 17.Allergic rhinitis. 18.BPH, status post TURP. 19.Prior history of tobacco abuse. 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 He had TURBT in 09/23/2016. ADMIT: 10/15/2016 RM/LOC: 429 [facility] MR#: [id number] [address] [place] [phone] CARLOS SEGURA [address] [place] [address] History and Physical SEX: M AGE: 86 : 1930 21.Chronic left hydronephrosis. He patient did not tolerate prior stenting. 22.Stage 3 chronic kidney disease. ALLERGIES: NONE. HE DID HAVE ADVERSE DRUG REACTIONS TO HALDOL, MORPHINE MADE HIM SLEEPY, PRAVACHOL AND SIMVASTATIN GAVE HIM SOME MUSCLE ACHES. MEDICATIONS: His home medications include: 1. Eliquis. 2. Allopurinol. 3. Acetaminophen. 4. Lipitor. 5. Calcium. 6. Vitamin D. 7. Vitamin B12. 8. Docusate. 9. Fish oil. 10.Folic acid. 11.Melatonin. 12.Multivitamin. 13.Zofran. 14.Zantac. 15.MiraLax. 16.Flomax. 17.Amiodarone. FAMILY HISTORY: Noncontributory. SOCIAL HISTORY: He is . Prior smoker. Occasional drinker. Lives here in [place]. He is retired. REVIEW OF SYSTEMS: As noted above. All other systems reviewed and negative. PHYSICAL EXAMINATION: VITAL SIGNS: 97.1, 84, 18, 109/88, 90% on room air. GENERAL: This is an elderly gentleman. He is in no apparent distress. He is awake. He is alert. He is oriented. He is cooperative and pleasant. HEENT: Normocephalic and atraumatic. Mucous membranes are little dry. NECK: Supple without any obvious lymphadenopathy. He has good neck range of motion in all actions with no nuchal rigidity noted. HEART: He has a pacemaker in place in his left upper chest. His heart is regular at this time. LUNGS: Clear. ABDOMEN: Soft, nontender, nondistended. Positive bowel sounds throughout. EXTREMITIES: He has just trace to 1+ ankle and calf edema. NEUROLOGIC: Cranial nerves II through XII are intact. 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 Strength in all extremities is 4+/5, equal and symmetric. [id number] is within normal limits at this time. ADMIT: 10/15/2016 RM/LOC: 429 [facility] MR#: [id number] [address] [place] [id number] CARLOS SEGURA [address] [place] [address] History and Physical SEX: M AGE: 86 : 1930 LABORATORY AND X-RAY DATA: Lab work shows hemoglobin 13.6, white count 6.5, and 210,000 platelets. Sodium 140, potassium 4.5, BUN is 27, creatinine 2.3. Bicarb is 27. CT scan of the head shows no fractures, no bleeds or masses, unchanged from his prior hospitalization here six weeks ago. Chest x-ray shows pacemaker in place with mild cardiomegaly. No airspace disease is noted. EKG, 79 beats per minute, looks paced to me. ASSESSMENT AND PLAN: 1. Headache, severe, resolving. 2. Gait disturbance ? or symptoms of orthostasis. 3. Nausea, resolving. 4. History of subdural hematoma. 5. Prior history of cerebrovascular accident. 6. Muscle invasive bladder cancer, status post TURBT. 7. Chronic kidney disease with chronic left hydronephrosis. 8. Atrial fibrillation, on chronic anticoagulation with Eliquis. 9. History of coronary artery disease. At this time, the patient is feeling quite a bit better today. I still do not have any etiology for his headache, especially after his very extensive workup within the last 6 weeks. This does not sound like any obvious headache syndrome to me, it certainly does not sound migrainous in nature. Did wonder a little bit about cluster headaches. We will think about using some oxygen therapy or triptans but I really do not know given his heart disease if we should give out a try. We will see how things go. Certainly does not seem infectious to me. Would love to do a MRI of the brain or even just a CTA but with his chronic kidney disease and pacemaker, that just will not be possible. His neurologic exam really seems pretty good today. Some of this gait disturbance still sounds like it could be some orthostasis. I am going to stop his Flomax given his increased fall risk as of now. We are going to hold off on his Eliquis as well. We will have PT and OT see him today. Plan on letting him have a diet. We will try just a little bit of Lortab for pain and we will follow him closely as an inpatient. I did talk with them extensively about possible transfer for Neurology evaluation, and the patient and both think we should hold off on that as long as he is feeling better, but we will certainly consider that as things evolve. Ricardo Gomes MD/ cyndy JOB #: [id number] CC: Ricardo Gomes MD, Attending Physician Ricardo Gomes MD, Family Physician
[~2016-10-15 02:40] MED LIST changes: -ANTIVERT-DPS25 MG PO; -ASA325 MG PO; -B-12 DOTS500 MCG PO; -CALTRATE-600 D600 MG PO; -LASIX20 MG PO; -MELATIN3 MG PO; -METAMUCIL POWD822 GM PO; -METOPROLOL TART25 MG PO; -NORCO 5-325 TA1 EACH PO; -THERA1 EACH PO; -ULTRAM DPS50 MG PO; -ZOFRAN8 MG PO
--- NOTE | 2016-10-16 13:24 | ER ---
ADMIT: 10/15/2016 RM/LOC: 429 [facility] MR#: [id number] [id number] [place], [place] [address] CARLOS SEGURA Nacho [address] [place], [place] [address] Emergency Room Report SEX: M AGE: 86 : 1930 DATE: 10/15/2016 TIME: 0240 Please refer to my T-sheet for complete H and P. HISTORY OF PRESENT ILLNESS: Briefly, the patient is an 86-year-old who comes in with 2 hours of acute onset of severe headache, unsteady gait, nausea. He was in the hospital for very similar episode about 6 weeks ago, had a very large workup. He is on Eliquis, has a history of subdural bleeds in the past and a history of a TIA in the past, but he said his gait was unsteady and his face when he walked in looked like it was slightly drooping, so when he walked in, I went ahead and called a stroke alert. He said it is one of the worst of his life. PHYSICAL EXAMINATION: VITAL SIGNS: Here his blood pressure is 185/96, pulse 88, respirations 20, temp 96.6, saturating 96%. GENERAL: No acute distress. HEENT: Has just a touch of facial droop, possibly on the left. Otherwise, essentially normal. LUNGS: Clear. HEART: Regular. ABDOMEN: Soft, nontender. EXTREMITIES: No cyanosis, clubbing or edema. SKIN: No rash. NEUROLOGIC: I gave him a stroke scale of 2 originally from his unsteady gait and a little bit of facial droop; however, after asking the family that facial droop may be normal for him as it is not essentially a real droop and I went ahead. EMERGENCY DEPARTMENT COURSE: CT of his head showed no acute changes. Chest x- ray, no acute disease. CBC normal except hemoglobin 13.6. Chemistries normal except creatinine 2.3. Coags essentially normal. EKG was paced, rate 79. I ADMIT: 10/15/2016 RM/LOC: 429 [facility] MR#: [id number] [address] [address] ELVACARLOS MURPHY [address] [place] [address] Emergency Room Report SEX: M AGE: 86 : 1930 reviewed his old record. We gave him Reglan 10 IV, he was feeling better, but not resolved. I talked to Dr. Ricardo Gomes, we are going to observe him in the hospital. ASSESSMENT: 1. Acute headache, etiology is uncertain. He had a big workup recently with no evidence of intracranial hemorrhage on CT scan. 2. Renal insufficiency. This has been somewhat stable. 3. Anticoagulated. 4. Nausea, vomiting. PLAN: Admit to the hospital. Torito Graf MD/ cyndy JOB #: [id number] CC: Ricardo Gomes MD, Attending Physician Ricardo Gomes MD, Family Physician
[2016-10-19] MEDS ORDERED: TYLENOL DPS325 MG PO (10:58)
[2016-10-19] MEDS ORDERED: CALTRATE-600 D600 MG PO (10:59)
[2016-10-19] MEDS ORDERED: ZYLOPRIM-DPS300 MG PO (10:59)
[2016-10-19] MEDS ORDERED: LIPITOR DPS10 MG PO (10:59)
[2016-10-19] MEDS ORDERED: B-12 DOTS500 MCG PO (11:00)
[2016-10-19] MEDS ORDERED: VITAMIN D-32000 UNI1 PO (11:00)
[2016-10-19] MEDS ORDERED: SENOKOT S1 TAB PO (11:01)
[2016-10-19] MEDS ORDERED: MELATIN3 MG PO (11:01)
[2016-10-19] MEDS ORDERED: FOLVITE-DPS1 MG PO (11:01)
[2016-10-19] MEDS ORDERED: MIRALAX PACKET17 GM PO (11:02)
[2016-10-19] MEDS ORDERED: ZOFRAN8 MG PO (11:02)
[2016-10-19] MEDS ORDERED: THERA1 EACH PO (11:02)
[2016-10-19] MEDS ORDERED: ANTIVERT-DPS25 MG PO (11:03)
[2016-10-19] MEDS ORDERED: NORCO 5-325 TA1 EACH PO (11:03)
[2016-10-19] MEDS ORDERED: ZANTAC DPS150 MG PO (11:03)
[2016-10-19] MEDS ORDERED: CORDARONE DPS200 MG PO (11:03)
[2016-10-19] MEDS ORDERED: METAMUCIL POWD822 GM PO (11:05)
--- NOTE | 2016-10-19 12:33 | DS ---
ADMIT: 10/17/2016 RM/LOC: 429 [facility] MR#: [id number] [address] [address] CARLOS SEGURA [address] [place], [place] [id number] Discharge Summary SEX: M AGE: 86 : 1930 ADMISSION DATE: 10/17/2016 DISCHARGE DATE: 10/18/2016 DISCHARGE DIAGNOSES: 1. Headaches, likely tension, resolved. 2. Orthostatic hypotension, resolved. 3. Benign positional paroxysmal vertigo, resolved. 4. Atrial fibrillation, paroxysmal. 5. History of CVA (cerebrovascular accident). 6. Status post pacemaker placement. 7. Chronic kidney disease. 8. Muscle invasive bladder carcinoma. 9. Constipation, resolved. CONSULTATIONS: None. PROCEDURES: None. REASON FOR ADMISSION: A very pleasant 86-year-old gentleman with multiple medical problems who presents to [facility] Emergency Room with complaints of headache and dizziness, and he was admitted based on his prior history of subdural stroke. He was admitted for further evaluation and treatment. For complete details, please see history and physical dictated on the day of admission. HOSPITAL COURSE: At the time of admission, the patient was placed on telemetry bed. He underwent imaging of the brain that showed no changes in the old subdurals. He had no new stroke symptoms that were noted. He was found to be just profoundly orthostatic with some blood pressure drops of greater than 50 points with position changes. His Flomax was stopped. He was given some IV fluids. He was really thought to be a little volume depleted as well. His ortho status has improved significantly. We did do an ACTH stim test that was normal showing no signs of adrenal insufficiency. With fall risk, we had a long talk with the patient and the family, and decided that the risk of falls and bleeding outweighed any possible benefit of anticoagulation especially given this ongoing bladder cancer, so we stopped his Eliquis. The headache had nearly completely resolved. This was thought to be kind of a ADMIT: 10/17/2016 RM/LOC: 429 [facility] MR#: [id number] 2620 [facility] [address] [place] [id number] CARLOS SEGURA [address] [place] [address] Discharge Summary SEX: M AGE: 86 : 1930 tension component to this. There were no meningeal signs. No fevers. CT scan was fine. Neurology consultation was not available. MRI of the brain could not be obtained secondary to his pacemaker. He did have some constipation while an inpatient. He was started on some MiraLAX and was given a fleets enema. That really improved for him as well. His creatinine came down a little bit with the IV fluids that we used for his orthostasis. It was 1.9 and overall stable. His heart rates were stable just on the amiodarone. The patient worked with PT and OT, did very well, and was thought to be ready for discharge home on 10/18. Discharge diet is as tolerated. Discharge activity is as tolerated. With the extensive talk about home safety, he will use his walker and be accompanied. He will follow up with [facility] for lab work and hospital follow up in the next 10-14 days. Ricardo Gomes MD/ arabella JOB #: [id number] CC: Ricardo Gomes MD, Attending Physician Ricardo Gomes MD, Family Physician
[2017-01-17] MEDS ORDERED: ULTRAM DPS50 MG PO (09:05)
[2017-01-17] MEDS ORDERED: METOPROLOL TART25 MG PO (09:05)
[2017-01-17] MEDS ORDERED: FLOMAX DPS0.4 MG PO (09:05)
[2017-01-17] MEDS ORDERED: ASA325 MG PO (09:06)
[2017-01-17] MEDS ORDERED: LASIX20 MG PO (09:06)
== END 2016-10-18 10:37 | disposition home or self-care (01) | DRG 312 ==
LOC: ER 02:40 → 4PCU 04:10
PROVIDERS: ADMIT Internal Medicine
DX: I95.1 Orthostatic hypotension (principal); N13.30 Unspecified hydronephrosis; E86.9 Volume depletion, unspecified; N18.3 Chronic kidney disease, stage 3 (moderate); I48.0 Paroxysmal atrial fibrillation; I12.9 Hypertensive chronic kidney disease with stage 1 through stage 4 chronic kidney disease, or unspecified chronic kidney disease; E78.5 Hyperlipidemia, unspecified; M10.9 Gout, unspecified; G44.209 Tension-type headache, unspecified, not intractable; H81.10 Benign paroxysmal vertigo, unspecified ear; G47.33 Obstructive sleep apnea (adult) (pediatric); M48.06 Spinal stenosis, lumbar region; I25.10 Atherosclerotic heart disease of native coronary artery without angina pectoris; K59.00 Constipation, unspecified; Z79.01 Long term (current) use of anticoagulants; Z86.73 Personal history of transient ischemic attack (TIA), and cerebral infarction without residual deficits; Z95.0 Presence of cardiac pacemaker; Z87.891 Personal history of nicotine dependence; Z96.653 Presence of artificial knee joint, bilateral; Z96.641 Presence of right artificial hip joint; Z95.1 Presence of aortocoronary bypass graft; Z86.79 Personal history of other diseases of the circulatory system; Z85.51 Personal history of malignant neoplasm of bladder

== ENCOUNTER 2016-11-24 05:03 | Emergency (ER) | payer MEDICARE, OTHER ==
[~2016-11-24 05:03] MED LIST changes: +ANTIVERT-DPS25 MG PO; +B-12 DOTS500 MCG PO; +CALTRATE-600 D600 MG PO; +MELATIN3 MG PO; +METAMUCIL POWD822 GM PO; +NORCO 5-325 TA1 EACH PO; +THERA1 EACH PO; +ZOFRAN8 MG PO
--- NOTE | 2016-11-24 19:09 | ER ---
ADMIT: 11/24/2016 RM/LOC: ER [facility] MR#: [id number] [id number] [place], [place] [address] CARLOS SEGURA [address] [place] [address] Emergency Room Report SEX: M AGE: 86 : 1930 DATE: 11/24/2016 The patient is an 86-year-old male with complex medical history, recent hospitalizations, and extensive neurosurgical evaluation for chronic headaches. The patient has had previous subdural with paulina hole left frontal, complains of awakening with typical throbbing headache and dizziness as well as bladder pain. Denies any dysuria. The patient also suffers from invasive transitional cell carcinoma of the bladder, status post TURBT. Exam is remarkable for nontoxic, afebrile male with no focal deficit or meningismus. CT shows chronic hygromas, left frontal parietal region. Diagnostic lab work shows normal CBC, CMP, elevated creatinine of 1.8, lactic 1.2, CRP 1.13. Urine does show 21 WBCs, 1+ blood, 3+ leukocyte esterase. Culture pending. The patient was given IV fluids, Zofran, Tylenol 1 g IV piggyback with near complete relief of pain, and Macrobid 100 mg p.o. b.i.d. x10 days, first dose in department. Advised Tylenol 1 g q.i.d. p.r.n. headache. Continue the Macrobid. Follow up Dr. Gomes in two weeks. Saji Gonsalves MD/ cyndy JOB #: [id number] CC: Saji Gonsalves MD, Attending Physician Ricardo Gomes MD, Family Physician Ricardo Gomes MD
[2017-01-17] MEDS ORDERED: FLOMAX DPS0.4 MG PO (09:05)
[2017-01-17] MEDS ORDERED: METOPROLOL TART25 MG PO (09:05)
[2017-01-17] MEDS ORDERED: ULTRAM DPS50 MG PO (09:05)
[2017-01-17] MEDS ORDERED: LASIX20 MG PO (09:06)
[2017-01-17] MEDS ORDERED: ASA325 MG PO (09:06)
== END 2016-11-24 06:49 | disposition home or self-care (01) ==
LOC: ER 05:03
DX: N39.0 Urinary tract infection, site not specified (principal); R51 Headache; G89.29 Other chronic pain; I12.9 Hypertensive chronic kidney disease with stage 1 through stage 4 chronic kidney disease, or unspecified chronic kidney disease; G47.33 Obstructive sleep apnea (adult) (pediatric); I48.91 Unspecified atrial fibrillation; E78.5 Hyperlipidemia, unspecified; Z90.49 Acquired absence of other specified parts of digestive tract